=== PATIENT | male | born 1955 | race Caucasian/White ===

== ENCOUNTER 2018-02-03 10:43 | Inpatient (IN) | payer MEDICARE ==
[2018-02-03] MEDS ORDERED: MORPHINE SULFATE 4 MG/ML SYRINGE IVP STA ×2 (11:24→12:33)
[2018-02-03] MEDS ORDERED: ONDANSETRON 4 MG/2 ML VIAL IVP STA (11:24)
--- NOTE | 2018-02-03 11:26 | ED ---
General Adult HPI - General Chief complaint: Fall Stated complaint: Fall Time Seen by Provider: 02/03/18 11:19 Source: patient, RN notes reviewed Mode of arrival: wheelchair Limitations: no limitations - History of Present Illness Initial comments: Patient 63-year-old male presenting to the emergency room today with a chief complaint of a fall that occurred prior to arrival. He does admit that he tripped over a cord falling down on the left side. He does admit that he's had pain to left hip. Unable to ambulate due to pain. He doesn't some bruising to the back of the left elbow. He denies any head injury or loss conscious. He denies any other complaints or symptoms. Patient denies any recent fever, chills , shortness of breath, chest pain, back pain, abdominal pain, nausea or vomiting , dysuria or hematuria, constipation or diarrhea, headaches or visual changes, or any other complaints. - Related Data Allergies Allergy/AdvReac Type Severity Reaction Status Date / Time No Known Allergies Allergy Verified 02/03/18 10:52 Review of Systems ROS Statement: Those systems with pertinent positive or pertinent negative responses have been documented in the HPI. ROS Other: All systems not noted in ROS Statement are negative. Past Medical History Past Medical History: No Reported History History of Any Multi-Drug Resistant Organisms: None Reported Additional Past Surgical History / Comment(s): Colonoscopy Past Psychological History: No Psychological Hx Reported Smoking Status: Never smoker Past Alcohol Use History: None Reported Past Drug Use History: None Reported General Exam - General Exam Comments Initial Comments: General: The patient is awake and alert, in no distress, and does not appear acutely ill. Eye: Pupils are equal, round and reactive to light, extra-ocular movements are intact. No nystagmus. There is normal conjunctiva bilaterally. No signs of icterus. Ears, nose, mouth and throat: There are moist mucous membranes and no oral lesions. Neck: The neck is supple, there is no tenderness or JVD. Cardiovascular: There is a regular rate and rhythm. No murmur, rub or gallop is appreciated. Respiratory: Lungs are clear to auscultation, respirations are non-labored, breath sounds are equal. No wheezes, stridor, rales, or rhonchi. Musculoskeletal: No obvious deformity of the left hip. Patient does have tenderness over the lateral and anterolateral aspects of the left hip on palpation. His sensation is intact. Pedal pulse 2+. Strength unable be assessed due to pain. S Neurological: A&O x 3. CN II-XII intact, There are no obvious motor or sensory deficits. Coordination appears grossly intact. Speech is normal. Skin: Skin is warm and dry and no rashes or lesions are noted. Psychiatric: Cooperative, appropriate mood & affect, normal judgment. Limitations: no limitations Course Vital Signs 02/03/18 10:49 Temperature 97.4 F L Pulse Rate 55 L Respiratory 16 Rate Blood Pressure 118/57 O2 Sat by Pulse 95 Oximetry Medical Decision Making - Medical Decision Making Patient's x-ray does show a femoral neck fracture of the left hip. Case was discussed with orthopedic physician health center assistant Sagar logan she recommended CT of the hip. Patient will be admitted to orthopedic service. Consult for medicine for clearance. Patient and family are aware the plan. - Lab Data Result diagrams: 02/03/18 11:49 02/03/18 11:49 Lab Results 02/03/18 02/03/18 02/03/18 Range/Units 11:49 11:49 11:49 WBC 9.2 (3.8-10.6) k/uL RBC 4.68 (4.30-5.90) m/uL Hgb 14.3 (13.0-17.5) gm/dL Hct 42.8 (39.0-53.0) % MCV 91.5 (80.0-100.0) fL MCH 30.6 (25.0-35.0) pg MCHC 33.4 (31.0-37.0) g/dL RDW 12.9 (11.5-15.5) % Plt Count 274 (150-450) k/uL Neutrophils % 85 % Lymphocytes % 9 % Monocytes % 4 % Eosinophils % 1 % Basophils % 0 % Neutrophils # 7.8 H (1.3-7.7) k/uL Lymphocytes # 0.8 L (1.0-4.8) k/uL Monocytes # 0.3 (0-1.0) k/uL Eosinophils # 0.1 (0-0.7) k/uL Basophils # 0.0 (0-0.2) k/uL PT 10.4 (9.0-12.0) sec INR 1.1 (<1.2) APTT 21.6 L (22.0-30.0) sec Sodium 139 (137-145) mmol/L Potassium 4.7 (3.5-5.1) mmol/L Chloride 104 (98-107) mmol/L Carbon Dioxide 25 (22-30) mmol/L Anion Gap 10 mmol/L BUN 16 (9-20) mg/dL Creatinine 0.90 (0.66-1.25) mg/dL Est GFR (CKD-EPI)AfAm >90 (>60 ml/min/1.73 sqM) Est GFR (CKD-EPI)NonAf >90 (>60 ml/min/1.73 sqM) Glucose 99 (74-99) mg/dL Calcium 8.8 (8.4-10.2) mg/dL Total Bilirubin 0.4 (0.2-1.3) mg/dL AST 45 (17-59) U/L ALT 47 (21-72) U/L Alkaline Phosphatase 42 (38-126) U/L Total Protein 6.3 (6.3-8.2) g/dL Albumin 3.7 (3.5-5.0) g/dL Disposition Clinical Impression: Hip fracture Disposition: ADMITTED IP TO THIS [facility] Condition: Good Is patient prescribed a controlled substance at d/c from ED?: No Referrals: Jimy Acosta MD [Primary Care Provider] - 1-2 days Time of Disposition: 13:17
--- NOTE | 2018-02-03 12:20 | XR ---
EXAMINATION TYPE: XR Hip LT and AP Pelvis DATE OF EXAM: 02/03/2018 COMPARISON: NONE HISTORY: Left hip pain and pelvic pain TECHNIQUE: A single AP view of the pelvis is obtained. Two views of the left hip are obtained. FINDINGS: There is no acute fracture/dislocation evident in the pelvis other than the below describe d left femoral neck fracture. The sacroiliac joints appear symmetric with moderate degenerative taveras ge. The overlying soft tissue appears unremarkable. Moderate right femoral acetabular arthropathy is noted with a cam deformity demonstrated as a protuberance at the right femoral head neck junction. Two views of left hip demonstrate a low transcervical left femoral neck fracture without apparent ext ension into the greater trochanter or lesser trochanter. This appears overall nondisplaced and noncom minuted, obliquely oriented. Punctate high density medial to the right femoral neck may represent a s mall osteophyte or tiny fracture fragment therefore minimal degree of comminution is possible. No fo melba lytic or sclerotic lesion seen in the proximal left femur. The overlying soft tissue is unremark able. IMPRESSION: Acute low transcervical left femoral neck fracture. No other fracture within the pelvis i s identified.
[2018-02-03 12:40] LABS: Basophils % (A) 0 %; Eosinophils # (A) 0.1 k/uL (0-0.7); Eosinophils % (A) 1 %; HCT 42.8 % (39.0-53.0); HGB 14.3 gm/dL (13.0-17.5); Lymphocytes # (A) 0.8 k/uL (1.0-4.8); Lymphocytes % (A) 9 %; MCH 30.6 pg (25.0-35.0); MCHC 33.4 g/dL (31.0-37.0); MCV 91.5 fL (80.0-100.0); Mean Platelet Volume 6.8; Monocytes # (A) 0.3 k/uL (0-1.0); Monocytes % (A) 4 %; Neutrophils # (A) 7.8 k/uL (1.3-7.7); Neutrophils % (A) 85 %; Platelet Count 274 k/uL (150-450); RBC 4.68 m/uL (4.30-5.90); RDW 12.9 % (11.5-15.5); WBC 9.2 k/uL (3.8-10.6)
[2018-02-03 12:49] LABS: ALT 47 U/L (21-72); AST 45 U/L (17-59); Albumin 3.7 g/dL (3.5-5.0); Alkaline Phosphatase 42 U/L (38-126); Anion Gap 10 mmol/L; Blood Urea Nitrogen 16 mg/dL (9-20); Calcium 8.8 mg/dL (8.4-10.2); Carbon Dioxide 25 mmol/L (22-30); Chloride 104 mmol/L (98-107); Glucose 99 mg/dL (74-99); Potassium 4.7 mmol/L (3.5-5.1); Sodium 139 mmol/L (137-145); Total Bilirubin 0.4 mg/dL (0.2-1.3); Total Protein 6.3 g/dL (6.3-8.2)
[2018-02-03 12:52] LABS: INR 1.1 (<1.2); Prothrombin Time 10.4 sec (9.0-12.0)
[2018-02-03 12:56] LABS: Partial Thromboplastin Time 21.6 sec (22.0-30.0)
--- NOTE | 2018-02-03 13:05 | CT ---
EXAMINATION TYPE: CT hip LT wo con DATE OF EXAM: 02/03/2018 COMPARISON: Left hip radiographs of the same date HISTORY: Fall, c/o left hip pain CT DLP: 567.4 mGycm Automated exposure control for dose reduction was used. FINDINGS: There is redemonstration of a low transcervical left femoral neck fracture with a single comminuted f racture fragment is seen at the medial femoral neck cortex. There is slight posterior head displaceme nt with apex anterior angulation and distraction of the most anterior aspect of the fracture on serie s 7 image 31 measuring 5 mm. There is moderate underlying femoral acetabular arthropathy with subchon dral cysts of the anterior and posterior acetabulum, marginal osteophytes of the femoral head, and tico int space narrowing. No additional fracture is identified. Lesser and greater trochanters are unremar kable best visualized on the sagittal images. Sacroiliac joint spaces maintained. Incidentally noted sigmoid diverticula without pericolonic fat stranding. Small left hip joint effusion is also seen. IMPRESSION: REDEMONSTRATION OF THE LOW TRANSCERVICAL LEFT FEMORAL NECK FRACTURE WITH SINGLE COMMINUTED FRACTURE F RAGMENT ADJACENT TO THE MEDIAL FEMORAL NECK CORTEX. THERE IS SLIGHT POSTERIOR FEMORAL HEAD DISPLACEME NT AND APEX ANTERIOR ANGULATION OF THE FRACTURE WITH 5 MM DISTRACTION.
--- NOTE | 2018-02-03 13:09 | XR ---
EXAMINATION TYPE: XR chest 1V portable DATE OF EXAM: 02/03/2018 COMPARISON: NONE HISTORY: Fall. Chest pain. TECHNIQUE: Single frontal view of the chest is obtained. FINDINGS: There is no focal air space opacity, pleural effusion, or pneumothorax seen. The cardiac silhouette size is upper limits of normal. The osseous structures are intact. IMPRESSION: No acute cardiopulmonary process.
[2018-02-03] MEDS ORDERED: HYDROcodone/APAP 5-325MG 1 EACH TAB PO PRN (13:18)
[2018-02-03] MEDS ORDERED: LORazepam 2 MG/ML INJ IV PRN (13:18)
[2018-02-03] MEDS ORDERED: SODIUM CHLORIDE 0.9% 1,000 ML IV ONE (13:18)
[2018-02-03] MEDS ORDERED: ONDANSETRON 4 MG/2 ML VIAL IVP PRN (13:18)
[2018-02-03] MEDS: MORPHINE SULFATE 4 MG/ML SYRINGE IV PRN ×3 (13:33→22:19)
[2018-02-03] MEDS ORDERED: HYDROcodone/APAP 7.5-325MG 1 EACH TAB PO PRN (14:55)
--- NOTE | 2018-02-03 14:55 | P.HPOR ---
History of Present Illness H&P Date: 02/03/18 Chief Complaint: Left femoral neck fracture Patient is a 63-year-old male who was evaluated today [facility] as regards to her left hip injury. Patient states that he was in his garage doing some vacuuming, he tripped over a cord and fell directly onto the left hip. He had immediate pain, he was unable to weight-bear. He was brought to the hospital by EMS, imaging and lab tests were done. Images demonstrated a left femoral neck fracture. I was contacted by the emergency room staff regarding the patient, I was able to review the images and discussed the case maintaining Dr. Reardon. We did admit the patient our care with plan for likely surgical intervention. Consults were placed for internal medicine for medical management including clearances for surgery. Patient was examined today in the emergency room, he is resting in his bed. He does notice pain in the left hip with motion. He denies any pain involving the right lower extremity, bilateral upper extremities, new onset cervical, thoracic or lumbar pain. Currently denies any headaches, lightheadedness, chest pain or shortness of breath. Review of Systems Constitutional: Reports as per HPI Past Medical History Past Medical History: No Reported History History of Any Multi-Drug Resistant Organisms: None Reported Additional Past Surgical History / Comment(s): Colonoscopy Past Psychological History: No Psychological Hx Reported Smoking Status: Never smoker Past Alcohol Use History: None Reported Past Drug Use History: None Reported Medications and Allergies Home Medications Medication Instructions Recorded Confirmed Type Omeprazole 40 mg PO DAILY PRN 02/03/18 02/03/18 History traZODone HCL 50 mg PO HS 02/03/18 02/03/18 History Allergies Allergy/AdvReac Type Severity Reaction Status Date / Time No Known Allergies Allergy Verified 02/03/18 13:32 Physical Examination Left lower extremity: No obvious open lesions or sores present, no significant areas of erythema or soft tissue swelling No significant shortening or malalignment noted of the lower extremity Logroll maneuver reproduces pain in the groin, he is unable to straight leg raise Calf is soft, no tenderness with palpation. Plantar flexion, dorsiflexion, EHL , FHL are intact No effusion present over the knee, no tenderness with palpation around the knee Sensory exam to light touch throughout the extremities intact, dorsal pedis pulses 2+ Results - Labs Labs: Abnormal Lab Results - Last 24 Hours (Table) 02/03/18 02/03/18 Range/Units 11:49 11:49 Neutrophils # 7.8 H (1.3-7.7) k/uL Lymphocytes # 0.8 L (1.0-4.8) k/uL APTT 21.6 L (22.0-30.0) sec H & H 02/03/18 Range/Units 11:49 Hgb 14.3 (13.0-17.5) gm/dL Hct 42.8 (39.0-53.0) % Coagulation 02/03/18 Range/Units 11:49 INR 1.1 (<1.2) Result Diagrams: 02/03/18 11:49 02/03/18 11:49 - Diagnostic results Hip x-ray: report reviewed, image reviewed Hip CT: report reviewed, image reviewed Assessment and Plan Plan: Imaging: X-rays and CT results of the left hip are reviewed. Images demonstrated a left femoral neck fracture. Assessment: 1. Left femoral neck fracture 2. Status post fall from standing 3. Left hip osteoarthritis Plan: I was able to review the case, including both physical exam findings imaging studies might any Dr. Reardon. Plan is for surgical intervention, more specifically a total hip arthroplasty. Patient will be [facility] to the [facility] floor. Nonweightbearing at this time. Regular diet at this time. Clearances have been asked for via his primary care doctor. I was able to discuss the treatment options with the patient at bedside today, risk and benefits were discussed, this including but not excluding infection, blood loss, neurovascular injury, pain and stiffness, development of blood clots , need for subsequent surgery. Patient is in good understanding would like to proceed with current treatment plan. Nonweightbearing left lower extremity Pain control GI and DVT prophylaxis, I will begin subcu heparin every 12 hours, plan to discontinue day before surgery Urinary catheter placement Obtain consent Regular diet at this time Further recommendations to follow Time with Patient: Less than 30
[2018-02-03 15:06] VITALS: BMI 29.9
[2018-02-03] MEDS ORDERED: PANTOPRAZOLE 40 MG TABLET PO PRN (17:46)
[2018-02-03] MEDS: HEPARIN SODIUM,PORCINE 5,000 UNIT/ML 1 ML VIAL SQ SCH (22:20)
[2018-02-03] MEDS: traZODone HCL 50 MG TAB PO SCH (22:22)
[2018-02-03] MEDS: HYDROcodone/APAP 7.5-325MG 1 EACH TAB PO PRN (23:43)
--- NOTE | 2018-02-03 23:48 | CONS ---
CONSULTATION DATE OF SERVICE: 02/03/2018. I am covering for Dr. Acosta. REASON FOR CONSULTATION: Advice regarding medical clearance and other medical issues requested by Dr. Reardon. HISTORY OF PRESENT ILLNESS: This 63-year-old gentleman with a past medical history of no significant medical issues being followed by Dr. Acosta in the outpatient setting. The patient apparently slipped and fell and suffered a left hip fracture. There is no history of fever, rigors or chills. No history of headache, loss of consciousness, seizures. PAST MEDICAL HISTORY: Colonoscopy. MEDICATIONS ARE: 1. Trazodone 50 mg. 2. Omeprazole 40 mg daily p.r.n. ALLERGIES: None. FAMILY HISTORY: History of breast cancer in the family. SOCIAL HISTORY: Previous history of smoking. No history of alcohol intake. REVIEW OF SYSTEMS: ENT: No diminished vision. No diminished hearing. CARDIOVASCULAR: No angina or palpitations. RESPIRATORY: As mentioned earlier. GI no nausea or vomiting or diarrhea. : No dysuria. Nervous system: No numbness, weakness. Allergy/Immunology: No asthma or hayfever. Musculoskeletal as mentioned earlier. Hematology/Oncology: No history of anemia. Endocrine no history of diabetes or hypothyroidism. CONSTITUTIONAL: As mentioned. Dermatology: Negative. Rheumatology: Negative. Psychiatry: As mentioned earlier. PHYSICAL EXAMINATION: Alert, oriented, times three. Pulse 52, blood pressure 147/72, respirations 16, temperature 97.2, pulse ox 94% on room air. HEENT: Conjunctivae normal. NECK: No jugular venous distention. Cardiovascular: S1, S2 muffled. No S3, no S4. RESPIRATORY: Breath sounds diminished in the bases. No rhonchi. No crackles. ABDOMEN: Soft, nontender. No mass palpable. LEGS: Status post left hip fracture. NERVOUS SYSTEM: Higher functions as mentioned earlier, moves all 4 limbs, no focal motor or sensory deficits. Lymphatics: No lymph nodes palpable in the neck, axillae or groin. SKIN: No ulcer, rash or bleeding. LABS: CBC within normal limits BMP, CMP within normal limits. Otherwise the EKG showed sinus bradycardia, otherwise no acute changes. The chest x-ray showed no acute abnormality. ASSESSMENT: 1. Status post left hip fracture. 2. Sinus bradycardia. 3. Gastroesophageal reflux disease. 4. Remote history of nicotine dependence. RECOMMENDATIONS AND DISCUSSION: In this 63-year-old gentleman presented after fracture at this time I recommend incentive spirometry, DVT prophylaxis. Otherwise the patient is medically cleared for surgery and medications. The patient is medically stable. See orders for details and Dr. Acosta will follow. MMEMERSONL / IJN: [id number] /
[2018-02-04] MEDS: MORPHINE SULFATE 4 MG/ML SYRINGE IV PRN ×5 (05:23→22:51)
[2018-02-04] MEDS: HYDROcodone/APAP 7.5-325MG 1 EACH TAB PO PRN ×3 (05:53→18:01)
[2018-02-04 07:28] LABS: Basophils % (A) 1 %; Eosinophils # (A) 0.3 k/uL (0-0.7); Eosinophils % (A) 4 %; HCT 42.6 % (39.0-53.0); Lymphocytes % (A) 15 %; MCH 30.3 pg (25.0-35.0); MCHC 32.8 g/dL (31.0-37.0); MCV 92.6 fL (80.0-100.0); Mean Platelet Volume 6.2; Monocytes # (A) 0.4 k/uL (0-1.0); Monocytes % (A) 5 %; Neutrophils # (A) 5.2 k/uL (1.3-7.7); Neutrophils % (A) 74 %; Platelet Count 259 k/uL (150-450); WBC 7.1 k/uL (3.8-10.6)
[2018-02-04 07:50] LABS: ALT 39 U/L (21-72); AST 33 U/L (17-59); Albumin 3.5 g/dL (3.5-5.0); Alkaline Phosphatase 38 U/L (38-126); Anion Gap 9 mmol/L; Blood Urea Nitrogen 11 mg/dL (9-20); Calcium 8.5 mg/dL (8.4-10.2); Carbon Dioxide 27 mmol/L (22-30); Chloride 104 mmol/L (98-107); Glucose 102 mg/dL (74-99); Potassium 4.3 mmol/L (3.5-5.1); Sodium 140 mmol/L (137-145); Total Bilirubin 0.9 mg/dL (0.2-1.3); Total Protein 5.9 g/dL (6.3-8.2)
[2018-02-04] MEDS: PANTOPRAZOLE 40 MG TABLET PO SCH (09:38)
[2018-02-04] MEDS: HEPARIN SODIUM,PORCINE 5,000 UNIT/ML 1 ML VIAL SQ SCH (09:38)
--- NOTE | 2018-02-04 11:49 | P.PN ---
Subjective Progress Note Date: 02/04/18 Principal diagnosis: Left femoral neck fracture Patient evaluated today at bedside, his family with him. He is doing well at this time. Pain is controlled at this time. Denies any headaches, lightheadedness, chest pain or shortness of breath. Objective - Vital Signs Vital signs: Vital Signs Temp 98.2 F 02/04/18 05:45 Pulse 60 02/04/18 08:15 Resp 18 02/04/18 08:15 BP 116/62 02/04/18 05:45 Pulse Ox 92 L 02/04/18 05:45 Intake & Output 02/03/18 02/04/18 02/04/18 18:59 06:59 18:59 Output Total 1400 Balance -1400 Weight 97.522 kg Output: Urine 1400 Other: Voiding Method Urinal Indwelling Catheter Indwelling Catheter # Voids 1 - Exam Left lower extremity: No obvious soft tissue swelling or ecchymosis present Patient is unable to straight leg raise, logroll maneuver reproduces pain No tenderness with palpation surrounding the knee, foot or ankle Plantar flexion, dorsiflexion, EHL, FHL are intact Sensory exam to light touch is intact throughout the extremity, dorsal pedis pulses 2+. - Labs CBC & Chem 7: 02/04/18 07:04 02/04/18 07:04 Labs: Abnormal Lab Results - Last 24 Hours (Table) 02/03/18 02/03/18 02/04/18 Range/Units 11:49 11:49 07:04 Neutrophils # 7.8 H (1.3-7.7) k/uL Lymphocytes # 0.8 L (1.0-4.8) k/uL APTT 21.6 L (22.0-30.0) sec Glucose 102 H (74-99) mg/dL Total Protein 5.9 L (6.3-8.2) g/dL Assessment and Plan Plan: Assessment: 1. Left femoral neck fracture Plan: Patient is scheduled for a direct anterior left total hip replacement the morning of 02/05/2018 risk and benefits were again discussed Obtain consent Nothing by mouth after midnight Hold anticoagulation night of 02/04/2018 Nonweightbearing left lower extremity Medical recommendations Pain control Further recommendations to follow after surgery Time with Patient: Less than 30
[2018-02-04] MEDS ORDERED: CALCIUM CARBONATE 500 MG CHEWABLE PO PRN (12:20)
[2018-02-04] MEDS: traZODone HCL 50 MG TAB PO SCH (20:50)
[2018-02-04] MEDS ORDERED: HYDROmorphone 0.5 MG/0.5 ML SYRINGE IVP PRN (22:19)
[2018-02-04] MEDS ORDERED: MORPHINE SULFATE 2 MG/ML SYRINGE IV PRN (22:19)
--- NOTE | 2018-02-04 22:23 | P.CONS ---
History of Present Illness - Reason for Consult Consult date: 02/04/18 - Chief Complaint Status post fall with hip fracture. - History of Present Illness This is a consultation on a 63-year-old white male essentially admitted for left hip fracture after falling in his garage. The patient has hypertension. No previous injury. No previous fall noted. Minimal fall risk is stated in the past. Review of Systems Constitutional: Denies chills, Denies fever Eyes: denies blurred vision, denies pain Ears, nose, mouth and throat: Denies headache, Denies sore throat Cardiovascular: Denies chest pain, Denies shortness of breath Respiratory: Denies cough Musculoskeletal: Reports as per HPI Past Medical History Past Medical History: No Reported History History of Any Multi-Drug Resistant Organisms: None Reported Additional Past Surgical History / Comment(s): Colonoscopy Past Psychological History: No Psychological Hx Reported Smoking Status: Former smoker Past Alcohol Use History: None Reported Past Drug Use History: None Reported - Past Family History Mother Family Medical History: Cancer Additional Family Medical History / Comment(s): Breast CA Father Family Medical History: Myocardial Infarction (ME) Additional Family Medical History / Comment(s): IBS, Diverticulitis Medications and Allergies Home Medications Medication Instructions Recorded Confirmed Type Omeprazole 40 mg PO DAILY PRN 02/03/18 02/03/18 History traZODone HCL 50 mg PO HS 02/03/18 02/03/18 History Allergies Allergy/AdvReac Type Severity Reaction Status Date / Time No Known Allergies Allergy Verified 02/03/18 13:32 Physical Exam Vitals: Vital Signs Temp Pulse Pulse Resp BP Pulse Ox 02/04/18 21:59 98.4 F 63 18 145/74 90 L 02/04/18 16:15 60 16 02/04/18 15:19 98.8 F 60 16 107/64 94 L 02/04/18 08:15 60 18 02/04/18 05:45 98.2 F 60 18 116/62 92 L Intake and Output 02/04/18 02/04/18 02/04/18 06:59 14:59 22:59 Output Total 1400 1300 1600 Balance -1400 -1300 -1600 Output: Urine 1400 1300 1600 Uretheral ([place]) 1600 Other: Voiding Method Indwelling Catheter Indwelling Catheter Indwelling Catheter - Constitutional General appearance: no acute distress - EENT Eyes: EOMI - Neck Neck: no lymphadenopathy - Respiratory Respiratory: bilateral: CTA - Cardiovascular Rhythm: regular Heart sounds: normal: S1, S2 Abnormal Heart Sounds: no S3 Gallop - Gastrointestinal General gastrointestinal: soft, no tenderness - Neurologic Neurologic: CNII-XII intact - Psychiatric Psychiatric: A&O x's 3, appropriate affect Results CBC & Chem 7: 02/04/18 07:04 02/04/18 07:04 Labs: Abnormal Lab Results - Last 24 Hours (Table) 02/04/18 Range/Units 07:04 Glucose 102 H (74-99) mg/dL Total Protein 5.9 L (6.3-8.2) g/dL Assessment and Plan (1) Hypertension Current Visit: Yes Status: Acute Code(s): I10 - ESSENTIAL (PRIMARY) HYPERTENSION SNOMED Code(s): 28333632 (2) Depression Current Visit: Yes Status: Acute Code(s): F32.9 - MAJOR DEPRESSIVE DISORDER , SINGLE EPISODE, UNSPECIFIED SNOMED Code(s): 22801840 Plan: The patient is medically cleared from femoral neck fracture on the left. Reconcile medications. Pain control per orthopedics. We will continue to follow. Time with Patient: Less than 30
[2018-02-04] MEDS ORDERED: LACTATED RINGERS 1,000 ML IV SCH (22:30)
[2018-02-05] MEDS: HYDROcodone/APAP 7.5-325MG 1 EACH TAB PO PRN ×2 (00:44→20:42)
[2018-02-05] MEDS: MORPHINE SULFATE 4 MG/ML SYRINGE IV PRN (02:57)
[2018-02-05] MEDS ORDERED: IV FLUID CONTINUATION 1,000 ML IV ONE (06:05)
[2018-02-05] MEDS ORDERED: fentaNYL (PF) 50 MCG/ML 2 ML AMP ONE (06:44)
[2018-02-05] MEDS ORDERED: fentaNYL (PF) 50 MCG/ML 2 ML AMP IVP ONE ×2 (06:48)
[2018-02-05] MEDS ORDERED: PROPOFOL 10 MG/ML 20 ML VIAL IV ONE (06:55)
[2018-02-05] MEDS ORDERED: SODIUM CHLORIDE 0.9% 100 ML BAG ONE (06:55)
[2018-02-05] MEDS ORDERED: ONDANSETRON 4 MG/2 ML VIAL ONE (06:55)
[2018-02-05] MEDS ORDERED: TRANEXAMIC ACID 1,000 MG/10 ML VIAL ONE (06:55)
[2018-02-05] MEDS ORDERED: MIDAZOLAM 2 MG/2 ML VIAL ONE (06:55)
[2018-02-05] MEDS ORDERED: ceFAZolin 1,000 MG VIAL ONE (06:55)
[2018-02-05] MEDS ORDERED: diphenhydrAMINE 50 MG/ML 1 ML VIAL ONE (06:55)
[2018-02-05] MEDS ORDERED: ePHEDrine SULFATE/0.9% NACL/PF 50 MG/5 ML SYRINGE IV ONE (06:55)
[2018-02-05] MEDS ORDERED: ROPIVACAINE 246.25 MG, EPINEPHrine 0.5 MG, KETOROLAC 30 MG, cloNIDine HCL/PF 80 MCG, WA... MISCELLANE ONE ×5 (06:59)
[2018-02-05] MEDS ORDERED: ceFAZolin IN SWFI 2 GM/20 ML SYRINGE IVP ONE (07:00)
[2018-02-05] MEDS ORDERED: ceFAZolin 3,000 MG in SODIUM CHLORIDE 0.9% IRRIGATIO 3,000 ML IRRIGATION ONE (07:43)
[2018-02-05] MEDS ORDERED: LACTATED RINGERS 1,000 ML IV ONE (07:51)
[2018-02-05] MEDS ORDERED: TRANEXAMIC ACID 1,000 MG in SODIUM CHLORIDE 0.9% 50 ML IVPB PRN (07:56)
[2018-02-05] MEDS ORDERED: TRANEXAMIC ACID 1,000 MG/10 ML VIAL IRRIGATION ONE (08:00)
--- NOTE | 2018-02-05 09:05 | FL ---
Fluoroscopy History: LEFT ANTERIOR HIP REPLACEMENT LEFT ANTERIOR HIP REPLACEMENT, 33 sec fluoro
[2018-02-05] MEDS ORDERED: HYDROmorphone 0.5 MG/0.5 ML SYRINGE IVP PRN ×3 (09:23)
[2018-02-05] MEDS ORDERED: hydrOXYzine PAMOATE 25 MG CAP PO PRN (09:23)
[2018-02-05] MEDS ORDERED: NALOXONE 0.4 MG/ML 1 ML VIAL IV PRN (09:23)
--- NOTE | 2018-02-05 09:23 | P.OP ---
Date of Procedure: 02/05/18 Preoperative Diagnosis: Displaced left hip femoral neck fracture with osteoarthritis Postoperative Diagnosis: Same Procedure(s) Performed: Direct anterior left total hip arthroplasty Implants: 1. Depuy Corail KA size 16 standard no collar press-fit femoral stem 2. Depuy pinnacle acetabular shell press-fit 58 mm 3. Depuy pinnacle polyethylene acetabular liner neutral 36 mm ID 58 mm OD 4. Biolox delta ceramic femoral head + 1.5 36 mm Anesthesia: local, spinal Surgeon: Aki Reardon Documentation Specialist #1: Krzysztof Correa Estimated Blood Loss (ml): 150 Pathology: other (Femoral head) Condition: stable Disposition: PACU Indications for Procedure: 63-year-old patient who presented with a displaced left hip femoral neck fracture. He did have concomitant osteoarthritis. I recommended direct anterior left total hip arthroplasty. I reviewed the procedure, risks, complications and recovery. Patient was agreeable and consent regarding the procedure was obtained. Operative Findings: see description of procedure Description of Procedure: The patient was taken to the operative suite. Patient underwent a spinal anesthetic by the department of anesthesia. Patient was then transferred to the [place] table. Patient was given preoperative IV antibiotics and TXA. Both lower extremities were placed in standard leg spars. The hip was then prepped and draped in the normal sterile orthopedic fashion. A standard anterior incision was made beginning 3 cm lateral and 1 cm distal to the ASIS extending 10 cm. Dissection was then carried down through the subcutaneous soft tissues down to the fascia overlying the tensor fascia aurea. An incision was now made through the fascia. Careful dissection was taken down exposing the tensor fascia aurea muscle. A Cobra retractor was now placed along the medial femoral neck and a second one along the lateral femoral neck. The venous circumflex vessels were now identified, cauterized and clipped. We identified the anterior hip capsule. An incision was made through the hip capsule along the lateral border. I immediately encountered a hemarthrosis which was evacuated. We identified the fractured and displaced femoral neck with some comminution. Tag sutures were then placed along the anterior capsule and lateral capsule. We then performed a capsulotomy. Retractors were now placed around the femoral neck itself. A Cobra retractor was now placed along the anterior acetabulum. Good exposure was now noted of the femoral head/neck complex again noting the comminuted displaced femoral neck fracture.. Residual labrum was debrided out. We placed the extremity into 3 turns of fine traction. I now removed some of the comminuted fracture fragments. I used a bone saw to make an appropriate neck cut. The residual neck was removed. I introduced a corkscrew into the femoral head. The femoral head was now removed without difficulty. We did note a moderate plus osteoarthritis of both the femoral head and acetabulum. There was an area along the anterior lateral acetabulum where there was a full- thickness cartilage loss. The extremity was now rotated to 45 of external rotation. It was locked in position. Residual labrum was now debrided out. Serial reaming was performed of the acetabulum. Once we reached the appropriate size and a trial was position and fit nicely. The appropriate size was now chosen opened and made available. The wound was irrigated with pulse lavage mechanical irrigation. It was introduced into the acetabulum without difficulty. The C-arm/fluoroscopy was now brought into the operative field. We made sure we had a true AP pelvic view. We now under direct C-arm/ fluoroscopy introduced into the acetabular component with appropriate version and inclination. It was well seated and stable. The C-arm was pulled back. An appropriate liner was introduced and clicked into position. It was felt to be stable. At this point retractors were removed. The extremity was now placed into 120 external rotation with no traction. The leg was now dropped to the ground and adducted. Appropriate retractors were now positioned along the proximal femur. We also placed our femoral look into position. Additional capsular releasing was performed to gain access to the proximal femur. We now used a box osteotome. A canal finder was now utilized. Serial broaching was now performed until we reached the appropriate size with good overall rotational stability. Appropriate calcar planing was performed. A trial head/ neck was placed into position. The hip was now reduced. The C-arm/fluoroscopy was brought back into the operative field. A spot film was obtained of the nonoperative hip. A spot film was obtained of the trial components. Overlays were performed, we noted good overall alignment and positioning for determining leg length. The C-arm/fluoroscopy was pulled back. Retractors were repositioned and the hip was dislocated. The leg was again taken down to the ground and adducted. Appropriate retractors were repositioned as well as the femoral hook. All trial components were removed. The wound was irrigated with pulse lavage mechanical irrigation. The deep soft tissues were infiltrated with local analgesic. The femoral implant was opened along with the femoral head. The femoral implant was introduced with good purchase and fixation noted. The femoral head was introduced with good positioning and fixation noted. Retractors were now removed. The hip was now reduced. There appeared be good positioning of the hip. This was confirmed on fluoroscopy and spot films were obtained to document that. A second gram of TXA was given. Bipolar cautery had been utilized intermittently through the procedure for hemostasis. The wound was irrigated copiously with pulse lavage mechanical irrigation. The superficial soft tissues were now infiltrated with local analgesic. The fascia was repaired with Vicryl suture. The subcutaneous soft tissues were repaired in layers with Vicryl suture. The skin was approximated with pernio/Dermabond. Sterile dressings were applied. Patient was then awakened, transferred to a bed and taken to recovery in stable condition. Sagar ELDER assisted with the procedure.
[2018-02-05] MEDS: LACTATED RINGERS 1,000 ML IV SCH ×2 (10:54→21:46)
[2018-02-05] MEDS: PANTOPRAZOLE 40 MG TABLET PO SCH (11:39)
[2018-02-05] MEDS: traMADol 50 MG TAB PO SCH ×3 (12:40→21:49)
[2018-02-05] MEDS: ceFAZolin IN SWFI 2 GM/20 ML SYRINGE IVP SCH ×2 (15:08→23:17)
[2018-02-05] MEDS ORDERED: SENNOSIDES-DOCUSATE SODIUM 1 EACH TAB PO SCH (21:00)
[2018-02-05] MEDS: traZODone HCL 50 MG TAB PO SCH (21:56)
[2018-02-05 23:10] VITALS: RESP 16
[2018-02-06] MEDS ORDERED: HYDROcodone/APAP 7.5-325MG 1 EACH TAB ONE (01:27)
[2018-02-06] MEDS: HYDROcodone/APAP 7.5-325MG 1 EACH TAB PO PRN (06:37)
[2018-02-06 07:34] LABS: Basophils % (A) 1 %; Eosinophils # (A) 0.3 k/uL (0-0.7); Eosinophils % (A) 4 %; HCT 40.1 % (39.0-53.0); HGB 13.5 gm/dL (13.0-17.5); Lymphocytes # (A) 0.8 k/uL (1.0-4.8); Lymphocytes % (A) 12 %; MCH 31.2 pg (25.0-35.0); MCHC 33.6 g/dL (31.0-37.0); MCV 92.8 fL (80.0-100.0); Monocytes # (A) 0.5 k/uL (0-1.0); Monocytes % (A) 7 %; Neutrophils # (A) 5.5 k/uL (1.3-7.7); Neutrophils % (A) 75 %; Platelet Count 214 k/uL (150-450); RBC 4.32 m/uL (4.30-5.90); RDW 13.4 % (11.5-15.5); WBC 7.3 k/uL (3.8-10.6)
[2018-02-06 07:51] LABS: ALT 36 U/L (21-72); AST 57 U/L (17-59); Albumin 3.3 g/dL (3.5-5.0); Alkaline Phosphatase 39 U/L (38-126); Anion Gap 10 mmol/L; Blood Urea Nitrogen 12 mg/dL (9-20); Calcium 8.4 mg/dL (8.4-10.2); Carbon Dioxide 30 mmol/L (22-30); Chloride 96 mmol/L (98-107); Glucose 99 mg/dL (74-99); Potassium 4.2 mmol/L (3.5-5.1); Sodium 136 mmol/L (137-145); Total Bilirubin 0.9 mg/dL (0.2-1.3); Total Protein 5.8 g/dL (6.3-8.2)
[2018-02-06 08:08] VITALS: BP 114/52; PULSE 77; TEMP 98.2
[2018-02-06] MEDS: traMADol 50 MG TAB PO SCH ×2 (08:50→12:35)
[2018-02-06] MEDS: PANTOPRAZOLE 40 MG TABLET PO SCH (08:50)
[2018-02-06] MEDS ORDERED: MAGNESIUM HYDROXIDE 2,400 MG/10 ML CUP PO PRN (08:54)
[2018-02-06] MEDS ORDERED: FAMOTIDINE 20 MG TAB PO SCH (09:00)
[2018-02-06] MEDS ORDERED: ENOXAPARIN 40 MG/0.4 ML SYRINGE SQ SCH (09:00)
[2018-02-06] MEDS ORDERED: HYDROmorphone 2 MG TAB PO PRN ×2 (09:38→09:39)
[2018-02-06] MEDS ORDERED: HYDROmorphone 4 MG TABLET PO PRN (09:39)
[2018-02-06] MEDS ORDERED: MORPHINE ORAL SOLN 10 MG/5 ML CUP PO PRN (09:40)
--- NOTE | 2018-02-06 10:31 | P.PN ---
Subjective Progress Note Date: 02/06/18 Principal diagnosis: Left femoral neck fracture Patient evaluated today at bedside. He is doing well at this time. Pain is controlled at this time. Denies any headaches, lightheadedness, chest pain or shortness of breath. Objective - Vital Signs Vital signs: Vital Signs Temp 98.2 F 02/06/18 07:40 Pulse 77 02/06/18 07:40 Resp 16 02/06/18 07:40 BP 114/52 02/06/18 07:40 Pulse Ox 93 L 02/06/18 07:40 Intake & Output 02/05/18 02/06/18 02/06/18 18:59 06:59 18:59 Intake Total 801 640 450 Output Total 1630 550 Balance -829 90 450 Intake: IV 801 Intake, IV Titration 640 Amount Lactated Ringers 1,000 ml 640 @ 80 mls/hr IV .[id number] MARCY Rx#:[id number] Oral 450 Output: Urine 1480 550 Uretheral ([place]) 150 Estimated Blood Loss 150 Other: Voiding Method Indwelling Catheter Indwelling Catheter Urinal # Voids 1 # Bowel Movements 1 - Exam Left lower extremity: No obvious soft tissue swelling or ecchymosis present Patient is unable to straight leg raise, logroll maneuver reproduces pain No tenderness with palpation surrounding the knee, foot or ankle Plantar flexion, dorsiflexion, EHL, FHL are intact Sensory exam to light touch is intact throughout the extremity, dorsal pedis pulses 2+. - Labs CBC & Chem 7: 02/06/18 06:50 02/06/18 06:50 Labs: Abnormal Lab Results - Last 24 Hours (Table) 02/06/18 02/06/18 Range/Units 06:50 06:50 Lymphocytes # 0.8 L (1.0-4.8) k/uL Sodium 136 L (137-145) mmol/L Chloride 96 L (98-107) mmol/L Total Protein 5.8 L (6.3-8.2) g/dL Albumin 3.3 L (3.5-5.0) g/dL Assessment and Plan Plan: Assessment: 1. Postop day 1 status post left total hip arthroplasty Plan: Pain control we'll discharge home on tramadol 50 mg GI and DVT prophylaxis, aspirin 325 mg twice a day Wound care was discussed Home therapy and nursing after discharge medical recommendations Patient will be discharged home today Time with Patient: Less than 30
--- NOTE | 2018-02-06 10:37 | P.DS ---
Providers Date of admission: 02/03/18 13:51 Expected date of discharge: 02/06/18 Attending physician: Aki Reardon Consults: 02/03/18 13:18 Consult Physician Stat Consulting Provider: Jimy Acosta Reason/Comments: Medical clearance Do you want consulting provider notified?: Yes Primary care physician: Jimy Acosta [facility] Course: Date of admission: 02/03/2018 Date of discharge: 02/06/2018 Admission diagnosis: Left femoral neck fracture Discharge diagnosis: Status post left total hip arthroplasty Attending physician: Dr. Reardon Surgical procedures: Left total hip arthroplasty Brief history: Patient is a 63-year-old male who presented to [facility] on 02/03/2018 after suffering a fall injuring his left hip while in his garage. Patient was brought in by EMS, he was unable weight-bear. Patient was evaluated, as determined he had a left femoral neck fracture after x -rays. Due to the patient's fracture along with arthritic findings, we decided to proceed with a left total hip arthroplasty. Procedure is scheduled for 02/05. Hospital course: Details of patient's surgery can be found in operative report. Patient tolerated the procedure well and was subsequently transported to orthopedic floor. Patient's orthopeidc and medical care was provided daily. Patient had daily laboratory tests performed for evaluation of overall blood counts. Patient had daily physical therapy to include strengthening range of motion as well as education with walker ambulation. Patient was treated with Lovenox for their postoperative DVT prophylaxis during their inpatient stay. Patient was noted to have a relatively uneventful postoperative course. Patient reported satisfactory pain control with oral pain medications by postoperative day 0. Patient showed satisfactory progress with physical therapy. Patient moved steadily through the program and had no difficulty meeting the goals by postoperative day 1. Given patient's otherwise satisfactory course and having met physical therapy goals, plan is to discharge patient [home] on postoperative day 1. Discharge condition/disposition: Patient will be discharged [home] in stable condition. Discharge medications: Instructions are given on resumption of patient's normal daily medications per primary care recommendation, in addition patient will be prescribed tramadol 50 mg, Colace 100 mg. Discharge instructions: 1. Wound care and infection precautions, [keep incision dry and covered while showering], no lotions, creams, moisturizers. No soaking, tubs, pools, hottubs. Do not scrub over the incision. 2. Weight-bear [as tolerated] with walker / cane until follow-up. 3. Ice and elevate when necessary. Do not exceed 20 minutes per hour with ice pack. 4. Utilize compression sleeve until seen at first follow up appointment. 5. Visiting nursing care. 6. Home physical therapy. 7. Pain meds and anticoagulants per prescription. 8. Pain medication has potential to cause constipation. Increase oral fluid and fiber intake. Contact primary care provider if you have not had a bowel movement within 48 hours after discharge 9. No anti-inflammatory medication until discussed at first post operative visit, this including Motrin, Aleve, Mobic, Diclofenac. 10. Follow up in office at 2 weeks postop with Sagar Correa PA-C 11. Follow up with your primary care doctor 7-10 days after discharge. 12. Contact [facility] with any questions, . Procedures: Left hip total arthroplasty Patient Condition at Discharge: Good Plan - Discharge Summary Discharge Rx Participant: Yes New Discharge Prescriptions: New Aspirin 325 mg PO BID #60 tab Docusate [Colace] 100 mg PO DAILY #30 capsule traMADol HCl [Ultram] 50 mg PO Q6H PRN #30 tab PRN Reason: Pain No Action traZODone HCL 50 mg PO HS Omeprazole 40 mg PO DAILY PRN PRN Reason: GERD Discharge Medication List Omeprazole 40 mg PO DAILY PRN 02/03/18 [History] traZODone HCL 50 mg PO HS 02/03/18 [History] Aspirin 325 mg PO BID #60 tab 02/06/18 [Rx] Docusate [Colace] 100 mg PO DAILY #30 capsule 02/06/18 [Rx] traMADol HCl [Ultram] 50 mg PO Q6H PRN #30 tab 02/06/18 [Rx] Follow up Appointment(s)/Referral(s): Jimy Acosta MD [Primary Care Provider] - 1-2 days [facility] Visiting Nurse, [NON-STAFF] - Krzysztof Correa PAC [PHYSICIAN DIAMOND CLEAVER] - 2 Weeks Activity/Diet/Wound Care/Special Instructions: pt request flu vaccine at discharge [facility] - [phone]- walker- will deliver to bedside before discharge. Orthopedic Discharge Instructions: 1. Wound care and infection precautions, keep incision dry and covered while showering, no lotions, creams, moisturizers. No soaking, pools, hot tubs. Do not scrub over incision. 2. Weight-bear as tolerated with walker / cane until follow-up. 3. Ice and elevate when necessary. Do not exceed 20 minutes per hour with ice pack. 4. Utilize compression sleeve until seen at first follow up appointment. 5. Visiting nursing care. 6. Home physical therapy. 7. Pain meds and anticoagulants per prescription. 8. Pain medication has potential to cause constipation. Increase oral fluid and fiber intake. Contact primary care provider if you have not had a bowel movement within 48 hours after discharge. 9. No anti-inflammatory medication until discussed at first post operative visit, this including Motrin, Aleve, Mobic, Diclofenac. 10. Follow up in office at 2 weeks postop with Sagar Correa PA-C 11. Follow up with your primary care doctor 7-10 days after discharge. 12. Contact [facility] with any questions, . Discharge Disposition: HOME SELF-CARE
== END 2018-02-06 13:20 | disposition home health service (06) | DRG 470 ==
LOC: EC 10:43 → 5MS5E 13:51 → 3SUR 02-05 15:45
PROVIDERS: ADMIT Orthopaedic Surgery; ATTEND Orthopaedic Surgery
PROC: 0SRB04A Replacement of Left Hip Joint with Ceramic on Polyethylene Synthetic Substitute, Uncemented, Open Approach (ICD-10-PCS; principal; 2018-02-05 07:00)
DX: S72.002A Fracture of unspecified part of neck of left femur, initial encounter for closed fracture (principal); F32.9 Major depressive disorder, single episode, unspecified; I10 Essential (primary) hypertension; K21.9 Gastro-esophageal reflux disease without esophagitis; M16.12 Unilateral primary osteoarthritis, left hip; R00.1 Bradycardia, unspecified; Z79.899 Other long term (current) drug therapy; Z87.891 Personal history of nicotine dependence; Z80.3 Family history of malignant neoplasm of breast; Z82.49 Family history of ischemic heart disease and other diseases of the circulatory system; W01.0XXA Fall on same level from slipping, tripping and stumbling without subsequent striking against object, initial encounter; Y92.008 Other place in unspecified non-institutional (private) residence as the place of occurrence of the external cause
CPT/HCPCS: 36415; 71045; 73501; 73502; 80053; 85025; 85610; 85730; 88305; 88311; 93005; 96374; 96375; 96376; 99285

== ENCOUNTER → 2018-09-24 | Outpatient (CLI) | payer MEDICARE ==
--- NOTE | 2018-09-24 09:22 | MR ---
EXAMINATION TYPE: MR knee LT wo con DATE OF EXAM: 09/24/2018 COMPARISON: X-ray 09/16/2018 HISTORY: Left knee pain TECHNIQUE: Multiplanar, multisequence imaging of the left knee is performed without IV contrast. FINDINGS: MEDIAL MENISCUS: There is grade 3 abnormal signal involving the posterior horn and body of the medial meniscus compatible with a tear. LATERAL MENISCUS: Suggestion of a tiny cyst along the posterior horn of the lateral meniscus suggesti ve of a para meniscal cyst and can be a secondary sign of subtle posterior horn tear. CRUCIATE LIGAMENTS: Posterior cruciate ligament is intact. There is slight ill definition the posteri or fibers of the ACL. No through thickness tear. Correlate for strain or partial tear. COLLATERAL LIGAMENTS: The medial collateral ligament and lateral collateral ligament complex are inta ct and unremarkable. EXTENSOR MECHANISM: Visualized quadriceps and patellar tendons are intact. EFFUSION: No significant suprapatellar joint effusion. POPLITEAL CYST: No sizable popliteal fossa cyst TRICOMPARTMENT SPACES: Mild narrowing of patellofemoral joint and medial compartment knee joint. Mild spurring along the upper margin of the patella. No erosive changes CARTILAGE: There is localized grade III chondromalacia of the articular medial femoral cartilage. No definite free fragment. BONE MARROW SIGNAL: Marrow edema or contusion involving the medial femoral condyle. IMPRESSION: 1. There is a complex tear involving the posterior horn with extension into the body of the medial me niscus. Adjacent bone contusion involving the posterior femoral condyle is seen and there is a locali zed area of grade IV chondromalacia involving the articular medial femoral cartilage along its latera l margin. 2. Poor definition the posterior fibers of the ACL suggestive of sprain. Partial non through thicknes s tear in the differential diagnosis correlate clinically. 3. Mild osteoarthritis 4. there is a para meniscal cyst along the posterior horn of the lateral meniscus can be indirect sig n posterior horn lateral meniscal tear.
== END ==
LOC: RADMRIMAIN 08:12
PROVIDERS: ATTEND Orthopaedic Surgery
DX: S83.242A Other tear of medial meniscus, current injury, left knee, initial encounter (principal); S70.12XA Contusion of left thigh, initial encounter; M94.262 Chondromalacia, left knee; M17.12 Unilateral primary osteoarthritis, left knee; M23.052 Cystic meniscus, posterior horn of lateral meniscus, left knee

== ENCOUNTER → 2018-10-08 | Outpatient (CLI) | payer MEDICARE ==
[2018-10-08 10:45] LABS: Potassium 4.4 mmol/L (3.5-5.1)
[2018-10-08 10:55] LABS: Basophils # (A) 0.1 k/uL (0-0.2); Basophils % (A) 1 %; Eosinophils # (A) 0.2 k/uL (0-0.7); Eosinophils % (A) 4 %; HCT 46.5 % (39.0-53.0); HGB 15.1 gm/dL (13.0-17.5); Lymphocytes # (A) 1.8 k/uL (1.0-4.8); Lymphocytes % (A) 33 %; MCH 30.7 pg (25.0-35.0); MCHC 32.4 g/dL (31.0-37.0); MCV 94.7 fL (80.0-100.0); Mean Platelet Volume 6.2; Monocytes # (A) 0.3 k/uL (0-1.0); Monocytes % (A) 6 %; Neutrophils % (A) 53 %; Platelet Count 279 k/uL (150-450); RBC 4.91 m/uL (4.30-5.90); WBC 5.6 k/uL (3.8-10.6)
== END | disposition home or self-care (01) ==
LOC: LABPAT 09:55
PROVIDERS: ATTEND Orthopaedic Surgery
DX: Z01.812 Encounter for preprocedural laboratory examination (principal); M23.92 Unspecified internal derangement of left knee
CPT/HCPCS: 36415; 80051; 85025

== ENCOUNTER 2018-10-09 11:45 | Day surgery (SDC) | payer MEDICARE ==
[2018-10-08 08:45] VITALS: BMI 26.8
--- NOTE | 2018-10-08 15:19 | HP ---
HISTORY AND PHYSICAL DATE OF SURGERY: 10/09/2018 Du Bal is a 63-year-old patient seen with progressive left knee pain. We discussed treatment options. He elected to proceed with left knee arthroscopy. Consent was obtained. PAST MEDICAL HISTORY: Noncontributory. PAST SURGICAL HISTORY: Noncontributory. MEDICATIONS: Meloxicam. ALLERGIES: None. SOCIAL HISTORY: Denies tobacco use. PHYSICAL EVALUATION OF THE LEFT KNEE: His range of motion is 0-220 degrees. Mild effusion. Tenderness medial joint line. Positive medial Landy's. Ligaments stable. Hip rotation without pain. Distal neurovascular exam is intact. LEFT KNEE RADIOGRAPHS: Reveal moderate osteoarthritis. Left knee MRI revealed medial meniscal tear and osteoarthritic changes. IMPRESSION: 1. Internal derangement, left knee with medial meniscal tear. 2. Hyperlipidemia. PLAN: Left knee arthroscopy with partial meniscectomy and debridement. MMODL / IJN: [id number] /
[~2018-10-09 11:45] MED LIST: DEXAMETHASONE SOD PHOSPHATE 10 MG/ML 1 ML VIAL IV ONE; LACTATED RINGERS 1,000 ML IV SCH; LIDOCAINE 1% 20 ML VIAL (10MG/ML) FOR IV START INTRADERMA PRN; ONDANSETRON 4 MG/2 ML VIAL IVP ONE; ceFAZolin IN SWFI 2 GM/20 ML SYRINGE IVP ONE; fentaNYL (PF) 50 MCG/ML 2 ML AMP IV PRN
[2018-10-09] MEDS ORDERED: MIDAZOLAM 2 MG/2 ML VIAL ONE (13:25)
[2018-10-09] MEDS ORDERED: GLYCOPYRROLATE 0.2 MG/ML 2 ML VIAL ONE (13:25)
[2018-10-09] MEDS ORDERED: LIDOCAINE 1% INJ 10MG/ML (20 ML MDV) ONE (13:25)
[2018-10-09] MEDS ORDERED: fentaNYL (PF) 50 MCG/ML 2 ML AMP ONE (13:25)
[2018-10-09] MEDS ORDERED: PROPOFOL 10 MG/ML 20 ML VIAL IV ONE (13:25)
[2018-10-09] MEDS ORDERED: SUCCINYLCHOLINE CHLORIDE 100 MG/5 ML SYR IV ONE (13:25)
[2018-10-09] MEDS ORDERED: BUPIVACAINE (PF) 0.25% 30 ML VIAL INTRAARTIC ONE ×2 (13:30→14:04)
--- NOTE | 2018-10-09 14:15 | P.OP ---
Date of Procedure: 10/09/18 Preoperative Diagnosis: Internal derangement left knee Postoperative Diagnosis: 1. Tear medial meniscus left knee 2. Grade 2/3 chondromalacia medial femoral condyle left knee 3. Reactive synovitis medial, lateral and suprapatellar compartments left knee Procedure(s) Performed: 1. Arthroscopic partial medial meniscectomy left knee 2. Arthroscopic chondroplasty medial femoral condyle left knee 3. Arthroscopic partial synovectomy medial, lateral and suprapatellar compartments left knee Anesthesia: GETA, local Surgeon: Aki Reardon Estimated Blood Loss (ml): 6 Pathology: none sent Condition: stable Disposition: PACU Indications for Procedure: 63-year-old patient seen with progressive left knee pain. After having treatment options discussed, he elected to proceed with arthroscopy Operative Findings: See description of procedure Description of Procedure: Patient was taken to the operative suite. Patient underwent a general anesthetic by the department of anesthesia. Patient was given preoperative antibiotics. The left lower extremity was placed in a well-padded arthroscopic leg badillo. The left leg was prepped and draped in the normal sterile orthopedic fashion. A lateral parapatellar and suprapatellar incision was made. Trochars were inserted. Arthroscopy was initiated. Suprapatellar pouch revealed diffuse thick reactive synovitis. The patellofemoral joint appeared to articulate congruently. There was grade 1 chondromalacia with no osteochondral tears present. The scope was guided into the medial gutter. No loose bodies or plica were identified. The scope was then guided into the medial compartment. A medial parapatellar incision was made. Trocar inserted followed by probe. There was a radial tear involving the posterior horn of the medial meniscus. There was thick reactive synovitis anteriorly. There were grade 2/3 chondromalacia changes of the medial femoral condyle with osteochondral tears present. I performed a partial medial meniscectomy down to stable tissue. I performed a chondroplasty of the medial femoral condyle down to stable tissue. I performed a partial synovectomy decompressing the reactive synovitis. The residual meniscus was probed and found to be stable. The residual osteochondral surface was stable. There was good decompression of the synovitis. Scope and probe were then guided into the intercondylar notch. Cruciates were identified, probed and found to be stable. The scope and probe were then guided into lateral compartment. There was some grade 1 chondromalacia changes of the lateral compartment with no osteochondral tears. The lateral meniscus was stable. There was reactive synovitis anteriorly. I performed a partial synovectomy decompressing the synovitis. There was good decompression of the synovitis. The scope was in guided back into the suprapatellar compartment. I introduced a motorized shaver into the suprapatellar compartment. I debrided some piecemeal fragments of meniscus I encountered. I performed a partial synovectomy decompressing the reactive synovitis. There was good decompression of the synovitis. I took one more look around the entire knee, no residual debris. Instruments were now removed from the joint. The joint was infiltrated with .25% Marcaine. Steri-Strips were applied to the portal sites. Sterile dressings were applied. The patient was placed into a MG hose. No tourniquet was utilized. The patient was awakened, transferred to a bed and taken to recovery stable satisfactory condition.
[2018-10-09 14:42] VITALS: TEMP 96.9
[2018-10-09 14:53] VITALS: RESP 18
[2018-10-09 15:28] VITALS: BP 129/82; PULSE 53
== END 2018-10-09 15:41 | disposition home or self-care (01) ==
LOC: OR 11:45
PROVIDERS: ATTEND Orthopaedic Surgery
DX: S83.242A Other tear of medial meniscus, current injury, left knee, initial encounter (principal); X58.XXXA Exposure to other specified factors, initial encounter; M94.262 Chondromalacia, left knee; M65.862 Other synovitis and tenosynovitis, left lower leg; M17.12 Unilateral primary osteoarthritis, left knee; E78.5 Hyperlipidemia, unspecified; J44.9 Chronic obstructive pulmonary disease, unspecified; K58.9 Irritable bowel syndrome, unspecified; Z79.1 Long term (current) use of non-steroidal anti-inflammatories (NSAID); Z79.899 Other long term (current) drug therapy
CPT/HCPCS: 29881; 29876; J2250; J1100; J2405; J2001; J3010; J0330; J2704; J0690

== ENCOUNTER → 2019-01-20 | Outpatient (CLI) | payer MEDICARE ==
[2019-01-20 08:53] LABS: Basophils # (A) 0.1 k/uL (0-0.2); Basophils % (A) 1 %; Eosinophils # (A) 0.3 k/uL (0-0.7); Eosinophils % (A) 4 %; HGB 14.6 gm/dL (13.0-17.5); Lymphocytes # (A) 1.7 k/uL (1.0-4.8); Lymphocytes % (A) 30 %; MCH 29.9 pg (25.0-35.0); MCHC 32.5 g/dL (31.0-37.0); MCV 91.9 fL (80.0-100.0); Mean Platelet Volume 6.7; Monocytes # (A) 0.4 k/uL (0-1.0); Monocytes % (A) 6 %; Neutrophils # (A) 3.2 k/uL (1.3-7.7); Neutrophils % (A) 56 %; Platelet Count 265 k/uL (150-450); RBC 4.89 m/uL (4.30-5.90); RDW 13.3 % (11.5-15.5); WBC 5.8 k/uL (3.8-10.6)
[2019-01-20 08:56] LABS: Appearance,Urine Clear (Clear); Bilirubin,Urine Negative (Negative); Blood,Urine Negative (Negative); Color,Urine Yellow; Glucose,Urine (UA) Negative (Negative); Ketones,Urine Negative (Negative); Leukocyte Esterase,Urine Negative (Negative); Nitrite,Urine Negative (Negative); Protein,Urine Negative (Negative); Urobilinogen,Urine <2.0 mg/dL (<2.0)
[2019-01-20 18:45] LABS: Vitamin D 25 Hydroxy 15.9 ng/mL (30.0-100.0)
[2019-01-20 18:46] LABS: Folate, Serum 7.8 ng/mL
[2019-01-20 19:04] LABS: Albumin 4.1 g/dL (3.80-4.90); Albumin/Globulin Ratio 2.05 (1.60-3.17); Anion Gap 7.3 mmol/L (4.00-12.00); Calcium 8.6 mg/dL (8.7-10.3); Carbon Dioxide 23.7 mmol/L (21.6-31.8); LDL Cholesterol,Calculated 149.4 mg/dL (0.0-131.0); Potassium 4.4 mmol/L (3.5-5.5); Total Bilirubin 0.6 mg/dL (0.2-1.2); Total Protein 6.1 g/dL (6.2-8.2); VLDL Calculation 19.6 mg/dL (5.00-40.00)
[2019-01-20 19:38] LABS: Hemoglobin A1C 5.7 % (4.0-6.0)
== END | disposition home or self-care (01) ==
LOC: LABWHC1 08:20
PROVIDERS: ATTEND Psychiatry & Neurology Neurology
DX: E55.9 Vitamin D deficiency, unspecified (principal); R41.3 Other amnesia; R73.09 Other abnormal glucose; Z13.6 Encounter for screening for cardiovascular disorders; Z13.21 Encounter for screening for nutritional disorder
CPT/HCPCS: 36415; 80053; 80061; 81003; 82306; 82746; 83036; 85025

== ENCOUNTER 2021-06-07 09:02 | Day surgery (SDC) | payer MEDICARE ==
--- NOTE | 2021-06-05 11:49 | P.HPOR ---
History of Present Illness H&P Date: 06/05/21 Chief Complaint: Left thumb arthritis Age: 66 year Height: 5'11.5" Weight: 194 lbs BP:128/86 Subjective: This is a 66 yo RHD male who presents today for evaluation regarding a 2 year history of worsening left thumb pain. Patient is currently retired but states he still remains active. He has had 2-3 steroid injections by orther hand surgeons with the most recent being 1.5 months ago and has also tried splinting but states that neither the injections or splinting is relieving his symptoms at this point at it is bothering him daily and he is unable to pitch or grasp obtions due to sharp pain at the base of the thumb. He denies any prior injury. ROS: Reviewed an negative unless otherwise states in the HPI Past Medical History: Irritable bowel syndrome Surgical / Procedural History: LTHA, L shoulder surgery Meds: Trazadone 50mg QD Meloxiam 15mg QD Physical Examination: LUE: AIN/PIN/Radial/Ulnar/Median motor intact. Radial/Ulnar/Median SILT. 2+/4 Radial/Ulnar pulses palpated. Positive CMC grind, negative Oziel's. Wrist flexion, extension 75 and 70 respectively. Negative Durkins compression, negative Tinel's at wrist. Imaging: X-Rays of the left hand demonstrate severe osteoarthritic changes at the base of the left thumb at level of CMC joint. Impression: 1.) Severe left thumb CMC arthritis Plan: Diagnosis and treatment options were discussed with the patient. The patient has severe symptomatic left thumb CMC arthritis that has failed conservative treatment in the form of splinting, anti-inflammatories, and multiple steroid injections. I explained the option of basal joint arthroplasty and believe he is a candidate, he states that he is ready to go forth with surgical intervention to address his persistent symptoms. Risks and benefits of surgery were discussed with the patient including bleeding, infection, damage to surrounding tissue, need for further surgery, possible decrease in pinch strength and he is understanding of these and agreeable with this plan of treatment. The patients questions were answered regarding the technique of the surgery. I explained the need for immobilization for 3 weeks post operatively, at 3 weeks we will start to advance to more active and passive ROM and at 6 weeks we will begin strengthening with therapy. He will obtain pre-op clearance and basic labs and EKG are ordered in office today. We will tentatively schedule a left thumb CMC arthroplasty in the near future. -Mickey Leblanc DO Orthopedic Hand/Upper Extremity Surgeon Past Medical History Past Medical History: COPD, GERD/Reflux, Hypertension, Musculoskeletal Disorder, Osteoarthritis (OA) Additional Past Medical History / Comment(s): PAST HX OF GERD & HTN (RESOLVED WITH DIET & WT LOSS)., MILD COPD., IBS, DDD., HX OF STOMACH ULCERS (IN HIS 20'S)., HX OF LEFT HIP FX WITH TOTAL HIP SURGERY (JANUARY 2018). History of Any Multi-Drug Resistant Organisms: None Reported Past Surgical History: Joint Replacement, Orthopedic Surgery Additional Past Surgical History / Comment(s): Colonoscopy, LEFT SHOULDER SURG, LEFT FEMORAL NECK FX WITH LEFT TOTAL HIP (JANUARY 2018) Past Anesthesia/Blood Transfusion Reactions: No Reported Reaction Past Psychological History: No Psychological Hx Reported Past Alcohol Use History: None Reported Additional Past Alcohol Use History / Comment(s): QUIT SMOKING 2011., SMOKED 3-4 PPD., SMOKED APPROX 41 YEARS. Past Drug Use History: None Reported - Past Family History Mother Family Medical History: Cancer Additional Family Medical History / Comment(s): Breast CA Father Family Medical History: Myocardial Infarction ([place]) Additional Family Medical History / Comment(s): IBS, Diverticulitis Medications and Allergies Home Medications Medication Instructions Recorded Confirmed Type traZODone HCL 50 mg PO HS 02/03/18 10/08/18 History Meloxicam [Mobic] 15 mg PO HS 10/08/18 10/08/18 History traMADol HCl [Ultram] 50 mg PO Q6H PRN #15 tab 10/09/18 Rx Allergies Allergy/AdvReac Type Severity Reaction Status Date / Time No Known Allergies Allergy Verified 10/09/18 12:19 Physical Examination Osteopathic Statement: *. No significant issues noted on an osteopathic structural exam other than those noted in the History and Physical/Consult.
[2021-06-06 09:10] VITALS: BMI 27.1
[~2021-06-07 09:02] MED LIST changes: -DEXAMETHASONE SOD PHOSPHATE 10 MG/ML 1 ML VIAL IV ONE; +DEXAMETHASONE SOD PHOSPHATE 4 MG/ML 1 ML VIAL IV ONE; +HYDROmorphone 0.5 MG/0.5 ML SYRINGE IVP PRN; +LIDOCAINE 1% (10MG/ML) FOR IV START INTRADERMA PRN; -LIDOCAINE 1% 20 ML VIAL (10MG/ML) FOR IV START INTRADERMA PRN; +SCOPOLAMINE 1.5MG/72HR PATCH TRANSDERM ONE; -ceFAZolin IN SWFI 2 GM/20 ML SYRINGE IVP ONE; -fentaNYL (PF) 50 MCG/ML 2 ML AMP IV PRN
[2021-06-07 09:23] VITALS: TEMP 97.2
[2021-06-07] MEDS ORDERED: MIDAZOLAM 2 MG/2 ML VIAL IVP ONE (09:37)
[2021-06-07] MEDS ORDERED: fentaNYL (PF) 50 MCG/ML 2 ML AMP IVP ONE (09:37)
[2021-06-07 09:52] VITALS: RESP 16
[2021-06-07] MEDS ORDERED: PROPOFOL 10 MG/ML 20 ML VIAL IV ONE (10:19)
[2021-06-07] MEDS ORDERED: fentaNYL (PF) 50 MCG/ML 2 ML AMP ONE (10:19)
[2021-06-07] MEDS ORDERED: GLYCOPYRROLATE 0.2 MG/ML 2 ML VIAL ONE (10:19)
[2021-06-07] MEDS ORDERED: LIDOCAINE 1% INJ 10MG/ML (20 ML MDV) ONE (10:19)
[2021-06-07] MEDS ORDERED: SODIUM CHLORIDE 0.9% (PF) 10 ML VIAL ONE (10:19)
[2021-06-07] MEDS ORDERED: ROPIVACAINE 5 MG/ML 30 ML VIAL ONE (10:19)
[2021-06-07] MEDS ORDERED: ePHEDrine SULFATE/0.9% NACL/PF 50 MG/5 ML SYRINGE IV ONE (10:19)
[2021-06-07] MEDS ORDERED: LACTATED RINGERS 1,000 ML IV ONE (10:55)
--- NOTE | 2021-06-07 11:01 | P.ANPRN ---
Procedure Note - Anesthesia - Nerve Block Performed Left Axillary Single Time Out Performed: Yes ([id number]) Date of Procedure: 06/07/21 Procedure Start Time: :38 Procedure Stop Time: :45 Location of Patient: PreOp Indication: Acute Post-Operative Pain, Requested by Surgeon Specifically requested for management of pain by DrIvonne: Mickey Leblanc Sedation Type: Sedate with meaningful contact maintained Preparation: Sterile Prep Position: Supine (arm over head L) Catheter: None Needle Types: Pajunk Needle Gauge: 21 Ultrasound used to visualize needle placement: Yes Ultrasound used to observe medication spread: Yes Injectate: 0.5% Ropivacaine (see comment for volume) (30cc + 10CC NACL PF. 10ml at each medial, radial, ulnar, Musculocutaneous) Blood Aspirated: No Pain Paresthesia on Injection Noted: No Resistance on Injection: Normal Image Stored and Saved: Yes Events: Uneventful and Well Tolerated
[2021-06-07 13:27] VITALS: BP 134/79; PULSE 47
--- NOTE | 2021-06-08 07:25 | P.OP ---
Date of Procedure: 06/07/21 Preoperative Diagnosis: Left thumb carpometacarpal arthrtitis Postoperative Diagnosis: Same Procedure(s) Performed: Left thumb carpometacarpal tendon transfer arthroplasty Anesthesia: regional Surgeon: Mickey Leblanc Estimated Blood Loss (ml): 0 Pathology: none sent Condition: stable Disposition: PACU Description of Procedure: This is a 66 year old male who presents with advanced left thumb CMC arthritis that has failed conservative treatment and presents today for surgical inte rvention. Risks and benefits of surgery were discussed with the patient including bleeding, damage to surrounding tissue, infection, need for further surgery as well as risks of anesthesia including pulmonary embolism and even and the patient wished to proceed with surgical intervention. The patients was seen in the pre-operative area by myself. Consent and H&P were completed and updated. The correct extremity was marked in the pre-operative area by myself and all other questions were answered. Operative Narrative: Patient received a upper extremity nerve block by the department of anesthesia. He then was brought to the operating room by the department of anesthesia. They remained on the portable stretcher and a rolling hand table was brought to the side of the operative extremity. The patient was then drifted off to sleep by the department of anesthesia. A nonsterile tourniquet was then applied to the operative extremity and the left upper extremity was then prepped and draped in normal sterile fashion. Pre-operative time out was performed indicating the correct patient, procedure and laterality. All in the room agreed. Pre-operative antibiotics were given prior to skin incision. The operative extremity was the exsanguinated with an esmarch bandage and the tourniquet was inflated to 250mmHg. Longitudinal incision was made over the left thumb CMC joint with a 15 blade scalpel. Blunt dissection was taken down to subcutaneous tissues with littler scissors taking care to preserve the branches of the superficial radial nerve. Dorsal radial artery was identified proximally in the incision and protected throughout the procedure. Scalpel was then made to incise the thumb CMC joint creating full thickness flaps off of the proximal metacarpal base and trapezium, this plane was further developed with a periosteal elevator. Elevator was then utilized to identify the thumb CMC joint and scaphotrapezial joint. Rongeur was then used to excise the trapezium in a piecemeal fashion. After trapeziectomy was performed FCR tendon was identified at the floor of the bed where the trapezium previously was located and the dorsal base of the thumb metacarpal was drilled with a 2.0 drill bit followed by a 3.5 drill bit. Rongeur was used to make a small groove at the dorsal base of metacarpal . Attention was then drawn to the volar wrist. Incision was made over FCR tendon distally and proximally at the level of the musculotendinous junction. FCR sheath was then opened and widened with a small hemostat. 2-0 Ethibond was then used to mirza the FCR tendon in half and the ulnar half of FCR tendon was harvested and sharply dissected by passing the 2-0 ethibond through the proximal incision and then sharply cutting the proximal portion of the tendon. The ulnar half of the FCR tendon was then passed through the FCR sheath and separation from the radial half of the tendon was carried all the way down it's insertion at the index metacarpal base. Loop was made with #2 suture through previously made drill holes and the FCR tendon was passed through the drill hole at the base of the first metacarpal and tensioned appropriately. 4-0 Ethibond was then used to suture the FCR tendon to itself in a figure of 8 fashion, this was repeated twice. 90 degree curved hemostat was then used to wrap the FCR tendon around itself and secured with multiple 4-0 ethibond figure of 8 stitches. The wound was then irrigated. Capsular closure was performed with 4-0 monocryl. Skin was closed with several interrupted 4-0 monocryl sutures followed by a running subcuticular stitch. Sterile dressing consisting of mastisol and steri strips followed by 4x4s cast padding, and a thumb spica plaster splint was applied. Tourniquet was let down and the hand had brisk cap refill and normal perfusion immediately. The patient was then woken by the department of anesthesia and transferred to PACU in stable condition. Mickey Leblanc D.O. Orthopedic Hand/Upper Extremity Surgeon
== END 2021-06-07 13:38 | disposition home or self-care (01) ==
LOC: OR 09:02
PROVIDERS: ATTEND Orthopaedic Surgery Hand Surgery
DX: M18.12 Unilateral primary osteoarthritis of first carpometacarpal joint, left hand (principal); J44.9 Chronic obstructive pulmonary disease, unspecified; K21.9 Gastro-esophageal reflux disease without esophagitis; I10 Essential (primary) hypertension; Z87.891 Personal history of nicotine dependence; Z82.49 Family history of ischemic heart disease and other diseases of the circulatory system; Z80.9 Family history of malignant neoplasm, unspecified
CPT/HCPCS: 25310; 64415; 76942; J2250; J1100; J0690; J2405; J2001; J3010; J2795; J2704

== ENCOUNTER 2021-10-15 09:56 | Emergency (ER) | payer MEDICARE ==
[2021-10-15 10:02] VITALS: RESP 18
[2021-10-15] MEDS ORDERED: DEXAMETHASONE SOD PHOSPHATE 10 MG/ML 1 ML VIAL IM STA (10:51)
--- NOTE | 2021-10-15 10:59 | ED ---
General Adult HPI - General Chief complaint: Upper Respiratory Infection Stated complaint: sob Time Seen by Provider: 10/15/21 10:02 Source: patient Mode of arrival: ambulatory Limitations: no limitations - History of Present Illness Initial comments: 66-year-old male with a past medical history of COPD, GERD presents to the emergency room for a chief complaint of wanting antibody infusion. Patient states he thinks he is positive for COVID-19. States his is positive and he started to have symptoms 4 days ago. He saw his doctor who wrote him an outpatient test but he can get it done until tomorrow. He his doctor was supposed to write him a steroid but it didn't go to the pharmacy. Patient is slightly short of breath. He has body aches. No cough. Patient would like antibody infusion as well. Patient is unvaccinated.Patient has no other complaints at this time including chest pain, abdominal pain, nausea or vomiting, headache, or visual changes. - Related Data Home Medications Medication Instructions Recorded Confirmed traZODone HCL 50 mg PO HS 02/03/18 06/07/21 Meloxicam [Mobic] 15 mg PO HS 10/08/18 06/07/21 Calcium Phos/Vit D3/Mag Oxide 1 each PO DAILY 06/06/21 06/07/21 [Posture-D Caplet] Cholecalciferol (Vitamin D3) 125 mcg PO DAILY 06/06/21 06/07/21 [Vitamin D3 (125 MCG = 5,000 IU)] Zinc 50 mg PO DAILY 06/06/21 06/07/21 Previous Rx's Medication Instructions Recorded HYDROcodone/APAP 5-325MG [Gould 1 tab PO Q6HR PRN 3 Days #12 tab 06/07/21 5-325] Dexamethasone [Decadron] 6 mg PO DAILY #6 tablet 10/15/21 Allergies Allergy/AdvReac Type Severity Reaction Status Date / Time No Known Allergies Allergy Verified 10/15/21 09:57 Review of Systems ROS Statement: Those systems with pertinent positive or pertinent negative responses have been documented in the HPI. ROS Other: All systems not noted in ROS Statement are negative. Past Medical History Past Medical History: COPD, GERD/Reflux, Musculoskeletal Disorder, Osteoarthritis (OA) Additional Past Medical History / Comment(s): MILD COPD., IBS, DDD., HX OF STOMACH ULCERS (IN HIS 20'S)., HX OF LEFT HIP FX WITH TOTAL HIP SURGERY (JANUARY 2018). History of Any Multi-Drug Resistant Organisms: None Reported Past Surgical History: Joint Replacement, Orthopedic Surgery Additional Past Surgical History / Comment(s): Colonoscopy, LEFT SHOULDER SURG, LEFT FEMORAL NECK FX WITH LEFT TOTAL HIP (JANUARY 2018), Past Anesthesia/Blood Transfusion Reactions: No Reported Reaction Past Psychological History: No Psychological Hx Reported Smoking Status: Former smoker Past Alcohol Use History: None Reported Past Drug Use History: None Reported - Past Family History Mother Family Medical History: Cancer Additional Family Medical History / Comment(s): Breast CA Father Family Medical History: Myocardial Infarction ([place]) Additional Family Medical History / Comment(s): IBS, Diverticulitis General Exam Limitations: no limitations General appearance: alert, in no apparent distress Head exam: Present: atraumatic Eye exam: Present: normal appearance, PERRL, EOMI. Absent: scleral icterus, conjunctival injection ENT exam: Present: normal exam, mucous membranes moist Neck exam: Present: normal inspection, full ROM. Absent: tenderness Respiratory exam: Present: normal lung sounds bilaterally. Absent: respiratory distress, wheezes Cardiovascular Exam: Present: regular rate, normal rhythm, normal heart sounds GI/Abdominal exam: Present: soft, normal bowel sounds. Absent: distended, tenderness Course Vital Signs 10/15/21 10/15/21 09:57 10:06 Temperature 97.8 F Pulse Rate 77 Respiratory 18 18 Rate Blood Pressure 137/81 O2 Sat by Pulse 97 Oximetry Medical Decision Making - Medical Decision Making Vitals are stable. Patient did test positive for COVID-19. Patient does elect to be given antibody infusion. He does qualify given he is unvaccinated and has lung disease. Patient is requesting chest x-ray which did show patchy peripheral opacities consistent with COVID-19 infection. Patient is also requesting steroid prescription as his doctors did not go through. We'll give him an IM dose here in the emergency room. Patient already has inhaler. Patient is currently taking vitamins including C, D, and zinc. At this time patient's oxygen is stable and he can be discharged, follow up with primary care. - Lab Data Lab Results 10/15/21 Range/Units 10:08 Coronavirus (PCR) Detected A (Not Detectd) Disposition Clinical Impression: COVID-19, Pneumonia due to COVID-19 virus Disposition: HOME SELF-CARE Condition: Good Instructions (If sedation given, give patient instructions): Coronavirus Disease 2019 (COVID-19) Additional Instructions: Please take steroid as directed. Continue your inhaler. Continue your vitamin regimen. Follow-up with your primary care doctor. Return to the emergency room for any worsening symptoms. Prescriptions: Dexamethasone [Decadron] 6 mg PO DAILY #6 tablet Is patient prescribed a controlled substance at d/c from ED?: No Referrals: Jimy Acosta MD [Primary Care Provider] - 1-2 days Time of Disposition: 11:36
--- NOTE | 2021-10-15 11:09 | XR ---
EXAMINATION TYPE: XR chest 1V portable DATE OF EXAM: 10/15/2021 COMPARISON: Chest x-ray February 03, 2018 HISTORY: Shortness of breath. COVID. TECHNIQUE: Single AP portable frontal upright view of the chest is obtained. FINDINGS: There is background chronic parenchymal changes with new right mid lung peripheral opacity and suspected less prominent patchy lateral peripheral left midlung opacities. The cardiac silhouet te size remains within normal limits. The osseous structures are intact. IMPRESSION: Chronic changes with new patchy peripheral opacities consistent with known covid-19 infe ction.
[2021-10-15] MEDS ORDERED: SOTROVIMAB (EUA) 500 MG in SODIUM CHLORIDE 0.9% 100 ML IVPB ONE (12:00)
[2021-10-15] MEDS ORDERED: SODIUM CHLORIDE 0.9% 50 ML IVPB ONE (12:00)
[2021-10-15 12:59] VITALS: BP 128/79; PULSE 75; TEMP 98.2
== END 2021-10-15 13:42 | disposition home or self-care (01) ==
LOC: EC 09:56
DX: U07.1 COVID-19 (principal); J12.82 Pneumonia due to coronavirus disease 2019; J44.9 Chronic obstructive pulmonary disease, unspecified; K21.9 Gastro-esophageal reflux disease without esophagitis; M19.90 Unspecified osteoarthritis, unspecified site; Z87.891 Personal history of nicotine dependence
CPT/HCPCS: 99285; 96372; 87635; 71045; J1100; Q0247

== ENCOUNTER → 2021-10-16 | Outpatient (CLI) | payer MEDICARE | END | disposition home or self-care (01) | LOC: LABWHC1 11:45 | PROVIDERS: ATTEND Family Medicine | DX: Z53.9 Procedure and treatment not carried out, unspecified reason (principal) ==

== ENCOUNTER → 2022-03-30 | Outpatient (CLI) | payer MEDICARE ==
--- NOTE | 2022-03-30 14:34 | US ---
EXAMINATION TYPE: US carotid duplex BILAT DATE OF EXAM: 03/30/2022 COMPARISON: NONE CLINICAL HISTORY: G45.9 TIA. Dizziness EXAM MEASUREMENTS: RIGHT: Peak Systolic Velocity (PSV) cm/sec ----- Right CCA: 129.2 ----- Right ICA: 104.7 ----- Right ECA: 122.6 ICA/CCA ratio: 0.8 RIGHT: End Diastole cm/sec ----- Right CCA: 31.8 ----- Right ICA: 27.0 ----- Right ECA: 14.4 LEFT: Peak Systolic Velocity (PSV) cm/sec ----- Left CCA: 122.0 ----- Left ICA: 111.3 ----- Left ECA: 95.1 ICA/CCA ratio: 0.9 LEFT: End Diastole cm/sec ----- Left CCA: 27.4 ----- Left ICA: 27.3 ----- Left ECA: 11.1 VERTEBRALS (direction of flow): Right Vertebral: Antegrade Left Vertebral: Antegrade Rhythm: Normal Some plaque see in the left bulb IMPRESSION: No evidence for hemodynamically significant stenosis. Criteria for Assigning % of Stenosis / Diameter reduction (Estimation based on the indirect measurements of the internal carotid artery velocities (ICA PSV). 1. Normal (no stenosis)=ICA PSV < 125 cm/s: ratio < 2.0: ICA EDV<40 cm/s. 2. Less than 50% stenosis=ICA PSV < 125 cm/s: ratio < 2.0: ICA EDV<40 cm/s. 3. 50 to 69% stenosis=ICA PSV of 125 to 230 cm/s: ration 2.0 ? 4.0: ICA EDV 40-100 cm/s. 4. Greater than 70% stenosis to near occlusion= ICA PSV > 230 cm/s: ratio > 4.0: ICA EDV > 100 cm/s. 5. Near occlusion= ICA PSV velocities may be low or undetectable: variable ratio and ICA EDV. 6. Total occlusion=unable to detect flow.
== END | disposition home or self-care (01) ==
LOC: RADUSWWP 13:41
PROVIDERS: ATTEND Family Medicine
DX: G45.9 Transient cerebral ischemic attack, unspecified (principal)
CPT/HCPCS: 93880

== ENCOUNTER 2023-05-06 19:41 | Emergency (ER) | payer MEDICARE ==
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
[2023-05-06 19:57] VITALS: TEMP 98.4
--- NOTE | 2023-05-06 20:37 | XR ---
EXAMINATION TYPE: XR knee complete LT, XR tibia fibula LT DATE OF EXAM: 05/06/2023 8:17 PM INDICATION: Patient age:Male; 68 years old; Reason for study: fall; [facility]. COMPARISON: None. TECHNIQUE: The Left knee(s) was examined in Frontal, lateral and oblique projections. Left tibia and fibula and frontal and lateral views. FINDINGS/IMPRESSION: 1. Tibial plateau fracture with extension into the proximal metadiaphysis with minimal displacement. 2. Distal tibia and fibula appear intact. The visualized femur and patella appear intact.
[2023-05-06] MEDS ORDERED: SODIUM CHLORIDE 0.9% 500 ML 500 ML IV STA (20:40)
[2023-05-06] MEDS ORDERED: SODIUM CHLORIDE 0.9% 1,000 ML IV STA (20:40)
[2023-05-06] MEDS ORDERED: HYDROmorphone 1 MG/ML 1 ML SYRINGE IVP STA ×2 (20:40→21:22)
[2023-05-06 21:07] LABS: Basophils % (A) 0 %; Eosinophils # (A) 0.1 k/uL (0-0.7); Eosinophils % (A) 2 %; HCT 45.4 % (39.0-53.0); HGB 15.5 gm/dL (13.0-17.5); Lymphocytes # (A) 1.1 k/uL (1.0-4.8); Lymphocytes % (A) 13 %; MCH 31.7 pg (25.0-35.0); Mean Platelet Volume 6.8; Monocytes # (A) 0.6 k/uL (0-1.0); Monocytes % (A) 6 %; Neutrophils # (A) 6.9 k/uL (1.3-7.7); Neutrophils % (A) 78 %; Platelet Count 238 k/uL (150-450); RBC 4.88 m/uL (4.30-5.90); RDW 12.4 % (11.5-15.5); WBC 8.8 k/uL (3.8-10.6)
[2023-05-06 21:15] LABS: Partial Thromboplastin Time 22.2 sec (22.0-30.0); Prothrombin Time 10.2 sec (9.0-12.0)
[2023-05-06 21:20] LABS: ALT 23 U/L (4-49); AST 33 U/L (17-59); African American GFR (CKD) >90 (>60 ml/min/1.73 sqM); Alkaline Phosphatase 45 U/L (38-126); Anion Gap 5 mmol/L; Blood Urea Nitrogen 19 mg/dL (9-20); Calcium 8.7 mg/dL (8.4-10.2); Carbon Dioxide 26 mmol/L (22-30); Chloride 106 mmol/L (98-107); Glucose 120 mg/dL (74-99); Non-African American GFR(CKD) 81 (>60 ml/min/1.73 sqM); Sodium 137 mmol/L (137-145); Total Bilirubin 0.5 mg/dL (0.2-1.3); Total Protein 6.9 g/dL (6.3-8.2)
[2023-05-06 21:32] LABS: Potassium 4.5 mmol/L (3.5-5.1)
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
[2023-05-06] MEDS ORDERED: HYDROmorphone 0.5 MG/0.5 ML SYRINGE IVP STA (22:10)
[2023-05-06 22:22] VITALS: BP 151/96; PULSE 59; RESP 19
== END 2023-05-06 22:25 | disposition other institution (70) ==
LOC: EC 19:41
DX: S82.142A Displaced bicondylar fracture of left tibia, initial encounter for closed fracture (principal); K58.9 Irritable bowel syndrome, unspecified; J44.9 Chronic obstructive pulmonary disease, unspecified; M19.90 Unspecified osteoarthritis, unspecified site; Z87.891 Personal history of nicotine dependence; Z79.899 Other long term (current) drug therapy; Z79.1 Long term (current) use of non-steroidal anti-inflammatories (NSAID); W18.30XA Fall on same level, unspecified, initial encounter; Y93.55 Activity, bike riding
CPT/HCPCS: 36415; 80053; 85025; 85610; 85730; 73590; 73562; 73700; 99285; 96374; 96376 ×2; 96361; J1170 ×2

== ENCOUNTER → 2024-01-14 | Outpatient (CLI) | payer MEDICARE ==
--- NOTE | 2024-01-19 22:28 | MR ---
EXAMINATION TYPE: MR knee LT wo con DATE OF EXAM: 01/14/2024 COMPARISON: CT 05/06/2023 and prior MRI 09/24/2018 HISTORY: 68-year-old male M25.562, Left knee pain, S/P fall. TECHNIQUE: Multiplanar, multisequence imaging of the left knee is performed without IV contrast. FINDINGS: As compared to January 2019 MRI, there is been interval placement of lateral plate and screw fi xation for the patient's tibial plateau fracture. Comminuted fracture lines extending into the latera l tibial plateau articular surface causing subchondral bony irregularity especially along the anterio r and mid central aspect of the joint. Thin but intact ACL fibers are seen. PCL and MCL are intact. There may be a partial tear at the femor al attachment of the LCL proper. Interval development of generalized muscle atrophy. Extensor mechanism is intact. Mild diffuse thinning of patellofemoral compartment articular cartilage . Small knee joint effusion and small leaking Butt's cyst noted. Normal popliteal artery anatomy. Some scattered muscle edema especially in the upper calf more so medially. Prominent degenerative signal throughout the posterior horn of the medial meniscus. There is superior and undersurface fraying throughout and the body is slightly diminutive. Otherwise, no well-defined tear is seen. There is a large horizontal cleavage tear involving the body of the lateral meniscus with oblique tea rs extending into both anterior and posterior horns. Mild diffuse thinning of both medial and lateral compartment articular cartilage volumes. IMPRESSION: 1. Lateral plate and screw fixation across the patient's tibial plateau fracture. Irregularity of the subchondral bone at the anterior and mid central aspects of the lateral tibial plateau articular milan face. 2. Large horizontal cleavage tear involving the body of the lateral meniscus with oblique tears exten ding into both anterior and posterior horns. 3. Possible grade 2 sprain femoral attachment of the LCL proper. Thin but intact ACL. 4. Degenerative signal and fraying throughout the medial meniscus and diminutive body of the medial m eniscus probably reflecting prior tear. 5. Interval development of generalized atrophy of the medial gastrocnemius muscle along with some massiel ma. Query posttraumatic or denervation atrophy. 6. Small knee joint effusion and small leaking Butt's cyst.
== END | disposition home or self-care (01) ==
LOC: RADMRIMAIN 13:07
PROVIDERS: ATTEND Orthopaedic Surgery
DX: M17.12 Unilateral primary osteoarthritis, left knee (principal); M23.352 Other meniscus derangements, posterior horn of lateral meniscus, left knee; M23.342 Other meniscus derangements, anterior horn of lateral meniscus, left knee; M25.462 Effusion, left knee; M71.22 Synovial cyst of popliteal space [Baker], left knee; M62.562 Muscle wasting and atrophy, not elsewhere classified, left lower leg; W19.XXXA Unspecified fall, initial encounter

== ENCOUNTER → 2024-02-06 | Outpatient (CLI) | payer MEDICARE ==
[2024-02-06 10:14] LABS: Basophils # (A) 0.1 k/uL (0-0.2); Basophils % (A) 1 %; Eosinophils # (A) 0.1 k/uL (0-0.7); Eosinophils % (A) 1 %; HCT 47.2 % (39.0-53.0); HGB 15.2 gm/dL (13.0-17.5); Lymphocytes # (A) 1.3 k/uL (1.0-4.8); Lymphocytes % (A) 12 %; MCH 30.8 pg (25.0-35.0); MCHC 32.3 g/dL (31.0-37.0); MCV 95.4 fL (80.0-100.0); Mean Platelet Volume 6.7; Monocytes # (A) 0.6 k/uL (0-1.0); Monocytes % (A) 6 %; Neutrophils # (A) 8.6 k/uL (1.3-7.7); Neutrophils % (A) 79 %; Platelet Count 260 k/uL (150-450); RBC 4.95 m/uL (4.30-5.90); RDW 12.3 % (11.5-15.5); WBC 10.9 k/uL (3.8-10.6)
[2024-02-06 15:31] LABS: Anion Gap 11.7 mmol/L (4.00-12.00); Carbon Dioxide 23.3 mmol/L (21.6-31.8); Potassium 4.3 mmol/L (3.5-5.5)
== END | disposition home or self-care (01) ==
LOC: LABPAT 08:59
PROVIDERS: ATTEND Orthopaedic Surgery
DX: Z01.818 Encounter for other preprocedural examination (principal); M23.92 Unspecified internal derangement of left knee; R00.1 Bradycardia, unspecified
CPT/HCPCS: 36415; 80051; 85025; 93005

== ENCOUNTER 2024-02-20 09:56 | Day surgery (SDC) | payer MEDICARE ==
--- NOTE | 2024-02-19 20:36 | HP ---
HISTORY AND PHYSICAL DATE OF SCHEDULED SURGERY: 02/20/2024. HISTORY OF PRESENT ILLNESS: Du Bal is a 69-year-old gentleman seen with progressive left knee pain. We discussed treatment options. He elected to proceed with left knee arthroscopy. Consent regarding the procedure was obtained. PAST MEDICAL HISTORY: Irritable bowel syndrome. PAST SURGICAL HISTORY: Left total hip arthroplasty, left shoulder arthroscopy. DAILY MEDICATIONS: 1. Trazodone. 2. Ibuprofen. 3. Tylenol. ALLERGIES: None. SOCIAL HISTORY: Denies current tobacco use. PHYSICAL EVALUATION OF THE LEFT KNEE: Range of motion is 130 degrees. He has a mild effusion. Tenderness along the medial lateral joint lines. Positive medial Landy's. Positive lateral Landy's. Ligaments stable. Hip rotation without pain. Distal neurovascular exam is intact. IMAGING STUDIES: Radiographs of the left knee revealed a previous ORIF of the tibial plateau. Mild osteoarthritis. MRI of the left knee revealed medial lateral meniscal tears. IMPRESSION: Internal derangement of left knee with medial lateral meniscal tears. PLAN: Arthroscopy left knee with partial medial/lateral meniscectomy and debridement. MMODL / IJN: [id number] /
[2024-02-20] MEDS: IV FLUID CONTINUATION 1,000 ML IV ONE ×4 (10:27→13:40)
[2024-02-20] MEDS: LACTATED RINGERS 1,000 ML IV SCH (10:27)
[2024-02-20] MEDS: DEXAMETHASONE SOD PHOSPHATE 4 MG/ML 1 ML VIAL IV ONE (10:38)
[2024-02-20] MEDS: ONDANSETRON 4 MG/2 ML VIAL IVP ONE (10:38)
[2024-02-20] MEDS: BUPIVACAINE (PF) 0.25% 30 ML VIAL MISCELLANE ONE ×2 (10:59→11:41)
[2024-02-20] MEDS ORDERED: fentaNYL (PF) 50 MCG/ML 2 ML AMP ONE (11:04)
[2024-02-20] MEDS ORDERED: PROPOFOL 10 MG/ML 20 ML VIAL IV ONE (11:04)
[2024-02-20] MEDS ORDERED: LIDOCAINE 1% INJ 10MG/ML (20 ML MDV) ONE (11:04)
[2024-02-20] MEDS ORDERED: KETOROLAC 15 MG/ML 1 ML VIAL ONE (11:04)
[2024-02-20] MEDS ORDERED: MIDAZOLAM 2 MG/2 ML VIAL ONE (11:04)
[2024-02-20 11:51] VITALS: RESP 16; TEMP 97
[2024-02-20] MEDS: HYDROmorphone 0.5 MG/0.5 ML SYRINGE IVP PRN (11:56)
--- NOTE | 2024-02-20 11:59 | P.OP ---
Date of Procedure: 02/20/24 Preoperative Diagnosis: Internal derangement left knee Postoperative Diagnosis: 1. Tear medial and lateral meniscus left knee 2. Grade IV chondromalacia medial femoral condyle left knee 3. Reactive synovitis medial, lateral and suprapatellar compartments left knee Procedure(s) Performed: 1. Arthroscopic partial medial and lateral meniscectomy left knee 2. Arthroscopic microfracture medial femoral condyle left knee 3. Arthroscopic partial synovectomy medial, lateral and suprapatellar compartments left knee 4. Arthroscopic chondroplasty medial femoral condyle left knee Anesthesia: KWAMEA, local Surgeon: Aki Reardon Estimated Blood Loss (ml): 7 Pathology: none sent Condition: stable Disposition: PACU Indications for Procedure: 69-year-old gentleman seen with progressive left knee pain. After having treatment options discussed, he elected to proceed with arthroscopy. Operative Findings: See description of procedure Description of Procedure: Patient was taken to the operative suite. Patient underwent a general anesthetic by the department of anesthesia. Patient was given preoperative antibiotics. The left lower extremity was placed in a well-padded arthroscopic leg badillo. The left leg was prepped and draped in the normal sterile orthopedic fashion. A lateral parapatellar and suprapatellar incision was made. Trochars were inserted. Arthroscopy was initiated. Suprapatellar pouch revealed diffuse thick reactive synovitis. The patellofemoral joint appeared to articulate congruently. There was grade I chondromalacia of the patella. The scope was guided into the medial gutter. No loose bodies or plica were identified. The scope was then guided into the medial compartment. A medial parapatellar incision was made. Trocar inserted followed by probe. There was a radial tear involving the posterior horn of the medial meniscus. There were grade III/IV chondromalacia changes the medial femoral condyle with some osteochondral flap tears. There was thick reactive synovitis anteriorly. I performed a partial medial meniscectomy getting down to stable meniscal tissue. I performed a chondroplasty of the medial femoral condyle getting down to stable osteochondral tissue. I performed a partial synovectomy decompressing the thick reactive synovitis. I did note an area of exposed bone along the medial femoral condyle measuring just over a centimeter. I introduced a microfracture awl and performed a microfracture to that area penetrating the bone with resultant bleeding at the microfracture site. The residual meniscus was found to be stable. The residual osteochondral surface was stable. There was good decompression of the synovitis. Scope and probe were then guided into the intercondylar notch. Cruciates were identified, probed and found to be stable. The scope and probe were then guided into lateral compartment. There was a complex tear involving the mid body and posterior horns of the lateral meniscus. There were grade I/II chondromalacia changes the tibial plateau and grade I chondromalacia changes of the femoral condyle. No osteochondral flap tears are present. There was some thick reactive situs anteriorly. I performed a partial lateral meniscectomy getting down to stable meniscal tissue. I performed a partial synovectomy decompressing the reactive synovitis. The residual meniscus was stable. There was good decompression of the synovitis. The scope was in guided back into the suprapatellar compartment. Introduced a motorized shaver into the suprapatellar compartment. I debrided some piecemeal fragments of meniscus that I encountered. I performed a partial synovectomy. The shaver was now removed. There was good decompression of the synovitis. I took 1 more look around the entire knee, no residual debris. Instruments were now removed from the joint. The joint was infiltrated with .25% Marcaine. Steri-Strips were applied to the portal sites. Sterile dressings were applied. The patient was placed into a MG hose. No tourniquet was utilized. The patient was awakened, transferred to a bed and taken to recovery stable satisfactory condition.
[2024-02-20] MEDS: HYDROcodone/APAP 5-325MG 1 EACH TAB PO ONE (13:06)
[2024-02-20 13:17] VITALS: PULSE 50
[2024-02-20 13:39] VITALS: BP 138/81
== END 2024-02-20 13:51 | disposition home or self-care (01) ==
LOC: OR 09:56
PROVIDERS: ATTEND Orthopaedic Surgery
DX: S83.272A Complex tear of lateral meniscus, current injury, left knee, initial encounter (principal); S83.242A Other tear of medial meniscus, current injury, left knee, initial encounter; M22.42 Chondromalacia patellae, left knee; M65.862 Other synovitis and tenosynovitis, left lower leg; J44.9 Chronic obstructive pulmonary disease, unspecified; E78.5 Hyperlipidemia, unspecified; G25.81 Restless legs syndrome; K21.9 Gastro-esophageal reflux disease without esophagitis; K58.9 Irritable bowel syndrome, unspecified; Z87.891 Personal history of nicotine dependence; Z79.899 Other long term (current) drug therapy; Z79.1 Long term (current) use of non-steroidal anti-inflammatories (NSAID); X58.XXXA Exposure to other specified factors, initial encounter
CPT/HCPCS: 29880; 29879; 29876; J2250; J1100; J0690; J2405; J2001; J3010; J1885; J2704; J1170; J0665